=== PATIENT | female | born 1965 | race Caucasian/White ===

== ENCOUNTER 2018-07-18 17:26 | Emergency (ER) | payer OTHER ==
[2018-07-18 18:23] LABS: ABSOLUTE BASOPHIL COUNT 0 /CUMM (0.0-0.2); ABSOLUTE EOSINOPHIL COUNT 0.4 /CUMM (0.0-0.7); ABSOLUTE GRANULOCYTE CT 3.4 /CUMM (1.4-6.5); ABSOLUTE LYMPH COUNT 2.1 /CUMM (1.2-3.4); ABSOLUTE MONOCYTE COUNT 0.5 /CUMM (0.10-0.60); BASOPHIL % 0.6 % (0.0-2.0); EOSINOPHIL % 6.4 % (0-5); GRANULOCYTE % 53.4 % (42.2-75.2); HEMATOCRIT 35.3 % (37-47); MEAN CORPUSCULAR HGB 29.5 PG (27.0-31.0); MEAN CORPUSCULAR HGB CONC 34.7 G/DL (33.0-37.0); MEAN CORPUSCULAR VOLUME 84.9 FL (81.0-99.0); MEAN PLATELET VOLUME 7.1 FL (7.4-10.4); PLATELET COUNT 281 /CUMM (130-400); RBC DISTRIBUTION WIDTH 12.2 % (11.5-14.5); RED BLOOD CELL CT 4.16 /CUMM (4.20-5.40); WHITE BLOOD CELL COUNT 6.4 /CUMM (4.8-10.8)
--- NOTE | 2018-07-18 18:48 | RADIOLOGY REPORT ---
EXAMINATION: CHEST 2 VIEWS CLINICAL INFORMATION: Cough. COMPARISON: No recent pertinent prior studies are available for comparison. TECHNIQUE: PA and lateral views of the chest obtained. FINDINGS: The lungs are well expanded. No focal infiltrate, effusion, edema, or pneumothorax. Cardiac and mediastinal silhouettes are within normal limits for technique. No acute bony abnormality seen. Subtle radiopaque tiny linear densities seen overlying the left base on the frontal view not seen in the lateral film. Uncertain if this is external to patient or possibly within the breast tissue IMPRESSION: No evidence of acute disease
--- NOTE | 2018-07-18 19:53 | ED GENERAL ADULT ---
History of Present Illness General Chief Complaint: General Adult Stated Complaint: SENT BY PMD C/O COUGH,BACK PAIN, SOB Source: patient Exam Limitations: no limitations Vital Signs & Intake/Output Vital Signs & Intake/Output Vital Signs Date Time Temp Pulse Resp B/P B/P Pulse O2 O2 Flow FiO2 Mean Ox Delivery Rate 07/18 2059 97.9 89 16 124/98 97 Room Air 07/18 1815 Room Air 07/18 1731 97.9 89 16 105/68 97 Room Air Allergies Uncoded Allergies: Allergy Other N Food Allergies N Med Allergies N Triage Note: PT SENT TO ED BY MD SALAZAR FOR EVAL OF SOB ON EXCERTION, PROD COUGH X A COUPLE MONTHS. HAD - CXRAY. ALSO REPORTS RIGHT SHOULDER BLADE PAIN. TOOK TESSALON PEARLS FOR A MONTH WITH LITTLE IMPROVEMENT. HAD EKG IN MD OFFICE TODAY. Triage Nurses Notes Reviewed? yes HPI: This is a 53-year-old female with history of asthma and prior smoker, presented to the emergency department with several weeks of nonproductive cough and mild shortness of breath. Seen by her PMD today with possible abnormal EKG. Arrives with no acute complaints. No cough while in the emergency department. She does states that she has intermittent right-sided chest wall discomfort to the posterior aspect. She denies any complaints of this nature now. She has no skin changes to suggest zoster. She denies any leg swelling, travel, trauma, other illness. She has had no history of blood clot. She had an outpatient chest x-ray which was read as clear. No diaphoresis, nausea, vomiting. (Henry Sawant MD) Past History Travel History Traveled to [place] past 21 day No Medical History Any Pertinent Medical History? see below for history Respiratory: asthma Cancer(s): BREAST CA Surgical History Surgical History: non-contributory Psychosocial History What is your primary language Belarusian Tobacco Use: Quit >30 days ago Family History Hx Contributory? No (Henry Sawant MD) Review of Systems Review of Systems Constitutional: Reports: no symptoms. EENTM: Reports: no symptoms. Respiratory: Reports: see HPI. Cardiovascular: Reports: see HPI. Denies: chest pain. All Other Systems: Reviewed and Negative (Henry Sawant MD) Physical Exam Physical Exam General Appearance: well developed/nourished, no apparent distress, alert, comfortable Head: atraumatic, normal appearance Eyes: Bilateral: normal appearance, PERRL, EOMI. Ears, Nose, Throat: normal pharynx, normal ENT inspection Neck: normal inspection, supple, full range of motion Respiratory: normal breath sounds, chest non-tender, no respiratory distress, lungs clear Cardiovascular: regular rate/rhythm, normal peripheral pulses Gastrointestinal: normal bowel sounds, soft, non-tender Back: normal inspection, normal range of motion, no vertebral tenderness Extremities: normal inspection, normal capillary refill, normal range of motion, no edema Core Measures ACS in differential dx? Yes CVA/TIA Diagnosis: No Sepsis Present: No Sepsis Focused Exam Completed? No (Jese CORDERO,Henry) Progress Differential Diagnoses I considered the following diagnoses in my evaluation of the patient: In this otherwise healthy and active 61-year-old female with history of smoking, some concern for pneumonia, pulmonary embolism, lower suspicion for acute coronary syndrome though will check troponin. Low suspicion for thoracic aortic disease. Pain to right chest wall could be related to cough. Most likely diagnosis is bronchitis/reactive airway disease although her lungs are clear at this time. Could be viral illness. Possibility of malignancy is considered, discussed with patient and seems low likelihood as she has had clear chest films. Plan of Care: Orders Procedure Date/time Status TROPONIN LEVEL 07/18 1736 Complete D-DIMER 07/18 1736 Complete COMPREHENSIVE METABOLIC PANEL 07/18 1736 Complete CBC WITHOUT DIFFERENTIAL 07/18 1736 Complete B-TYPE NATRIURETIC PEP (BNP) 07/18 1736 Complete EKG 07/18 1736 Active Laboratory Tests 07/18/18 1816: Anion Gap 6, Estimated GFR > 60, BUN/Creatinine Ratio 25.7 H, Glucose 94, Calcium 9.3, Total Bilirubin 0.3, AST 19, ALT 33, Alkaline Phosphatase 58, Troponin I < 0.01, Ttr-Y-Ioexuslfahr Pept 79.1, Total Protein 6.8, Albumin 3.9, Globulin 2.9, Albumin/Globulin Ratio 1.3, D-Dimer High Sensitivty < 200, CBC w Diff NO MAN DIFF REQ, RBC 4.16 L, MCV 84.9, MCH 29.5, MCHC 34.7, RDW 12.2, MPV 7.1 L, Gran % 53.4, Lymphocytes % 32.5, Monocytes % 7.1, Eosinophils % 6.4 H, Basophils % 0.6, Absolute Granulocytes 3.4, Absolute Lymphocytes 2.1, Absolute Monocytes 0.5, Absolute Eosinophils 0.4, Absolute Basophils 0 D-dimer negative, troponin negative, EKG nonischemic and within normal limits, no white count, chest x-ray clear. She is well-appearing on reassessment, able to ambulate the department without any difficulty. She has no cough while here. She has been started on MDI albuterol, steroids by her PMD. She will follow-up with her PMD for further. Return precautions provided. Initial ED EKG: normal axis, normal intervals, normal p-waves, normal QRS complex, normal sinus rhythm, no ST T wave changes (Henry Sawant MD) Departure Departure Time of Disposition: 2052 Disposition: HOME OR SELF CARE Condition: Stable Clinical Impression Primary Impression: Cough Secondary Impressions: Chest wall pain Referrals: Justina ABARCA,Laila Maria (PCP/Family) Additional Instructions: Thank you for coming to [facility] today. As we discussed, it is important you follow-up with your primary doctor. Please return to the emergency department if your symptoms worsen or you develop any new concerning symptoms such as chest pain, worsening shortness of breath or nausea or vomiting or sweats or abdominal pain. Departure Forms: Customer Survey General Discharge Information (Henry Sawant MD) PA/TORPEDO SPECIALIST Co-Sign Statement Statement: ED Attending supervision documentation- [] I saw and evaluated the patient. I have also reviewed all the pertinent lab results and diagnostic results. I agree with the findings and the plan of care as documented in the PA's/TORPEDO SPECIALIST's documentation. [] I have reviewed the ED Record and agree with the PA's/TORPEDO SPECIALIST's documentation. [] Additions or exceptions (if any) to the PAs/TORPEDO SPECIALIST's note and plan are summarized below: [] Resident Co-Sign Statement Statement: ED Attending supervision documentation- [] I saw and evaluated the patient. I have also reviewed all the pertinent lab results and diagnostic results. I agree with the findings and the plan of care as documented in the Resident's documentation. [x] I have reviewed the ED Record and agree with the Resident's documentation. [] Additions or exceptions (if any) to the Resident's note and plan are summarized below: [] (Chapin Conroy DO) Critical Care Note Critical Care Note Critical Care Time: non-applicable (Henry Sawant MD)
[2018-07-18 20:59] VITALS: BP 124/98
== END 2018-07-18 21:02 ==
LOC: ERH 17:26
PROVIDERS: Physician Assistant
DX: R05 Cough (principal); R07.89 Other chest pain; Z87.891 Personal history of nicotine dependence; J45.909 Unspecified asthma, uncomplicated
CPT/HCPCS: 71046; 93005; 93010